=== PATIENT | male | born 1940 | race Caucasian/White ===

== ENCOUNTER 2021-01-04 07:57 | Outpatient (CLI) | payer MEDICARE, SELFPAY ==
[2021-01-04 08:36] LABS: Alanine Aminotransferase 17 U/L (4-50); Albumin Level 4.2 g/dL (3.5-5.1); Alkaline Phosphatase 64 U/L (38-126); Anion Gap 8 mmol/L (8-16); Aspartate Amino Transferase 24 U/L (17-59); Bilirubin,Total 0.7 mg/dL (0.2-1.3); Blood Urea Nitrogen 14 mg/dL (9-20); Calcium 9.5 mg/dL (8.4-10.2); Carbon Dioxide 26 mmol/L (22-30); Chloride 104 mmol/L (98-107); Cholesterol 208 mg/dL (0-200); Estimated Glomerular Filt Rate > 60; Glucose 96 mg/dL (75-110); HDL Direct 71 mg/dL; Potassium 4.1 mmol/L (3.4-5.0); Sodium 138 mmol/L (137-145); Triglycerides 70 mg/dL (<150)
[2021-01-04 08:48] LABS: LDL Cholesterol Direct 106 mg/dL
== END 2021-01-04 07:58 | disposition home or self-care (01) ==
PROVIDERS: PCP Internal Medicine; Visit Provider Internal Medicine
DX: Z13.6 Encounter for screening for cardiovascular disorders (principal); E78.5 Hyperlipidemia, unspecified; Z79.899 Other long term (current) drug therapy
CPT/HCPCS: 36415; 80053; 80061

== ENCOUNTER 2021-09-01 08:54 | Outpatient (CLI) | payer MEDICARE, SELFPAY ==
[2021-09-01 09:57] LABS: Alanine Aminotransferase 21 U/L (4-50); Alkaline Phosphatase 64 U/L (38-126); Anion Gap 7 mmol/L (8-16); Aspartate Amino Transferase 25 U/L (17-59); Bilirubin,Total 0.6 mg/dL (0.2-1.3); Blood Urea Nitrogen 11 mg/dL (9-20); Calcium 9.1 mg/dL (8.4-10.2); Carbon Dioxide 26 mmol/L (22-30); Chloride 103 mmol/L (98-107); Cholesterol 183 mg/dL (0-200); Estimated Glomerular Filt Rate > 60; Glucose 115 mg/dL (65-110); HDL Direct 56 mg/dL; Potassium 3.8 mmol/L (3.4-5.0); Sodium 136 mmol/L (137-145); Triglycerides 92 mg/dL (<150)
[2021-09-01 10:09] LABS: LDL Cholesterol Direct 100 mg/dL
== END 2021-09-01 08:55 | disposition home or self-care (01) ==
PROVIDERS: PCP Internal Medicine; Visit Provider Nurse Practitioner
DX: E78.5 Hyperlipidemia, unspecified (principal)
CPT/HCPCS: 36415; 80053; 80061

== ENCOUNTER 2022-03-06 09:00 | Outpatient (CLI) | payer MEDICARE, SELFPAY ==
[2022-03-06 09:29] LABS: Alanine Aminotransferase 16 U/L (6-50); Albumin Level 4.2 g/dL (3.5-5.1); Alkaline Phosphatase 65 U/L (38-126); Anion Gap 10 mmol/L (8-16); Aspartate Amino Transferase 21 U/L (17-59); Bilirubin,Total 0.8 mg/dL (0.2-1.3); Blood Urea Nitrogen 14 mg/dL (9-20); Calcium 9.1 mg/dL (8.4-10.2); Carbon Dioxide 24 mmol/L (22-30); Chloride 101 mmol/L (98-107); Cholesterol 189 mg/dL (0-200); Estimated Glomerular Filt Rate > 60; Glucose 102 mg/dL (65-110); HDL Direct 64 mg/dL; Potassium 4.3 mmol/L (3.4-5.0); Sodium 135 mmol/L (137-145); Triglycerides 57 mg/dL (<150)
[2022-03-06 09:40] LABS: LDL Cholesterol Direct 97 mg/dL
== END 2022-03-06 09:01 | disposition home or self-care (01) ==
PROVIDERS: PCP Internal Medicine; Visit Provider Internal Medicine
DX: E78.2 Mixed hyperlipidemia (principal); Z79.899 Other long term (current) drug therapy
CPT/HCPCS: 36415; 80053; 80061

== ENCOUNTER 2022-05-06 13:16 | Outpatient (CLI) | payer MEDICARE, SELFPAY ==
--- NOTE | 2022-05-06 13:24 | ECHO_ITS ---
Patient Info Name: Alfonzo Lott Age: 81 years : 1940 Gender: Male Ht: 69 in Wt: 170 lbs BSA: 1.95 m2 HR: 69 bpm BP: 110 / 75 mmHg Heart Rhythm: Sinus Rhythm Technical Quality: Fair Exam Date: 05/06/2022 1:45 PM Exam Location: [facility] Pulmonary Patient Status: Outpatient Admit Date: 05/06/2022 Staff Ordering Physician: Marc Farr DO Sample Hand: Mariela Fisher RDCS Attending Provider: Marc Farr DO Referring Physician: Yordan QUIROS; Exam Type: CA echo doppler color flow Study Info Indications R55 - Syncope and collapse Complete two-dimensional, color flow and Doppler transthoracic echocardiogram is performed. Strain analysis performed. Summary 1. Complete two-dimensional, color flow and Doppler transthoracic echocardiogram is performed. 2. Left ventricular chamber dimension is normal. 3. Left ventricular systolic function is normal, estimated at 60-65%. 4. The left ventricular diastolic function is grade I diastolic dysfunction. 5. E/e' 5 is not elevated. 6. Global longitudinal strain is abnormal at -14.9%. 7. There is mild aortic valve sclerosis. 8. No pulmonary hypertension, estimated pulmonary arterial systolic pressure is 23 mmHg. Left Ventricle E/e' 5 is not elevated. Global longitudinal strain is abnormal at -14.9%. Left ventricular chamber dimension is normal. Left ventricular systolic function is normal, estimated at 60-65%. The left ventricular diastolic function is grade I diastolic dysfunction. Right Ventricle Right ventricular chamber dimension is normal. Right ventricular systolic function is normal. Left Atria Left atrial chamber dimension is normal. Right Atria Right atrial chamber dimension is normal. Aortic Valve The aortic valve is trileaflet. There is mild aortic valve sclerosis. There is no aortic valve stenosis. There is no aortic valve regurgitation. Pulmonic Valve There is no pulmonic regurgitation. Mitral Valve There is no mitral valve stenosis. There is no mitral valve regurgitation. Tricuspid Valve There is no tricuspid valve regurgitation. No pulmonary hypertension, estimated pulmonary arterial systolic pressure is 23 mmHg. Pericardium/Pleural There is no pericardial effusion. Inferior Vena Cava Normal inferior vena cava with >50% collapse upon inspiration consistent with normal right atrial pressure, 5 mmHg. Aorta The aortic root size at the sinus of Valsalva is normal. Left Ventricular Outflow Tract Name Value Normal LVOT 2D LVOT Diameter 2.1 cm LVOT Doppler LVOT Peak Gradient 2 mmHg LVOT Mean Gradient 1 mmHg LVOT VTI 15 cm LVOT VTI/AV VTI Ratio 0.8 LVOT Stroke Volume 52 ml LVOT CO 3.1 l/min LVOT CI 1.6 l/min/m2 Pulmonic Valve Name Value Normal
== END 2022-05-06 13:17 | disposition home or self-care (01) ==
LOC: ANHCARD 13:18
PROVIDERS: PCP Internal Medicine; Visit Provider Internal Medicine Cardiovascular Disease
DX: R55 Syncope and collapse (principal); I35.8 Other nonrheumatic aortic valve disorders; R93.1 Abnormal findings on diagnostic imaging of heart and coronary circulation
CPT/HCPCS: 93306

== ENCOUNTER 2022-12-28 07:07 | Outpatient (CLI) | payer MEDICARE, SELFPAY ==
[2022-12-28 08:14] LABS: Alanine Aminotransferase 20 U/L (6-50); Albumin Level 4.2 g/dL (3.5-5.1); Alkaline Phosphatase 76 U/L (38-126); Anion Gap 6 mmol/L (8-16); Aspartate Amino Transferase 22 U/L (17-59); Bilirubin,Total 0.9 mg/dL (0.2-1.3); Blood Urea Nitrogen 15 mg/dL (9-20); Carbon Dioxide 28 mmol/L (22-30); Chloride 104 mmol/L (98-107); Cholesterol 212 mg/dL (0-200); Estimated Glomerular Filt Rate > 60; Glucose 99 mg/dL (65-110); HDL Direct 53 mg/dL; Potassium 4.3 mmol/L (3.4-5.0); Sodium 138 mmol/L (137-145); Triglycerides 102 mg/dL (<150)
[2022-12-28 08:26] LABS: LDL Cholesterol Direct 136 mg/dL
== END 2022-12-28 07:08 | disposition home or self-care (01) ==
LOC: ANHLAB 07:11
PROVIDERS: PCP Family Medicine; Referring Provider Internal Medicine Cardiovascular Disease; Visit Provider Nurse Practitioner
DX: E78.2 Mixed hyperlipidemia (principal)
CPT/HCPCS: 36415; 80053; 80061

== ENCOUNTER 2023-11-22 07:39 | Outpatient (CLI) | payer MEDICARE, SELFPAY ==
[2023-11-22 08:33] LABS: Basophils Absolute Auto 0.1 K/mm3 (0.0-0.1); Basophils Percent Auto 1.2 % (0.2-1.2); Eosinophils Absolute Auto 0.4 K/mm3 (0-0.3); Eosinophils Percent Auto 6.8 % (0-4.4); Hematocrit 38.2 % (42.0-52.0); Hemoglobin 12.5 g/dL (14.0-18.0); Immature Granulocyte Absolute 0.02 K/mm3 (0.00-0.031); Immature Granulocyte Percent A 0.3 % (0-0.5); Lymphocytes Absolute Auto 1.91 K/mm3 (0.9-3.2); Lymphocytes Percent Auto 32.6 % (18.3-44.2); Mean Corpuscular HGB Conc 32.7 g/dl (32-36); Mean Corpuscular Hemoglobin 33.3 pg (26-34); Mean Corpuscular Volume 101.9 fl (80-100); Mean Platelet Volume 8.9 fl (7.4-10.4); Monocytes Absolute Auto 0.5 K/mm3 (0.1-0.6); Monocytes Percent Auto 8.4 % (2.6-8.5); Neutrophils Percent Auto 50.7 % (45.5-73.1); Platelet Count Result 232 k/mm3 (150-375); Red Blood Count 3.75 M/mm3 (4.6-6.20); Red Cell Distribution Width 13.7 % (11.5-14.5); White Blood Count 5.9 K/mm3 (4.5-10.0)
[2023-11-22 08:43] LABS: Alanine Aminotransferase 41 U/L (6-50); Alkaline Phosphatase 68 U/L (38-126); Anion Gap 5 mmol/L (4-12); Aspartate Amino Transferase 36 U/L (17-59); Blood Urea Nitrogen 10 mg/dL (9-20); Calcium 8.8 mg/dL (8.4-10.2); Carbon Dioxide 27 mmol/L (22-30); Chloride 103 mmol/L (98-107); Cholesterol 191 mg/dL (0-200); Estimated Glomerular Filt Rate > 60; Glucose 104 mg/dL (65-110); HDL Direct 57 mg/dL; Potassium 3.7 mmol/L (3.4-5.0); Sodium 135 mmol/L (137-145); Triglycerides 127 mg/dL (<150)
[2023-11-22 08:54] LABS: LDL Cholesterol Direct 125 mg/dL
== END 2023-11-22 07:40 | disposition home or self-care (01) ==
PROVIDERS: PCP Nurse Practitioner; Visit Provider Nurse Practitioner Family
DX: G31.84 Mild cognitive impairment of uncertain or unknown etiology (principal); E78.2 Mixed hyperlipidemia; M79.673 Pain in unspecified foot; R01.1 Cardiac murmur, unspecified; Z79.899 Other long term (current) drug therapy; Z86.73 Personal history of transient ischemic attack (TIA), and cerebral infarction without residual deficits; Z13.6 Encounter for screening for cardiovascular disorders
CPT/HCPCS: 36415; 80053; 80061; 85025

== ENCOUNTER 2023-12-31 14:22 | Outpatient (CLI) | payer MEDICARE, SELFPAY ==
[2023-12-31 16:14] LABS: Iron 168 ug/dL (49-181)
[2023-12-31 16:24] LABS: Percent Iron Saturation 62 % (20-50)
[2023-12-31 17:31] LABS: Folic Acid 5.1 ng/mL (2.76->20)
[2024-01-03 17:33] LABS: Cobalt,Random Urine 1.1 mcg/L
[2024-01-03 18:54] LABS: Vitamin B6 3.9 ng/mL (2.1-21.7)
[2024-01-04 13:02] LABS: Creatinine,Random Urine 145 mg/dL (20-320)
== END 2023-12-31 14:23 | disposition home or self-care (01) ==
PROVIDERS: PCP Nurse Practitioner; Visit Provider Nurse Practitioner
DX: E03.9 Hypothyroidism, unspecified (principal); G31.84 Mild cognitive impairment of uncertain or unknown etiology; D64.9 Anemia, unspecified; Z86.73 Personal history of transient ischemic attack (TIA), and cerebral infarction without residual deficits
CPT/HCPCS: 36415; 82607; 82746; 83540; 83550; 84207; 84443

== ENCOUNTER 2024-01-05 13:40 | Outpatient (CLI) | payer MEDICARE, SELFPAY ==
--- NOTE | ~2024-01-05 | MR_ITS ---
MRI of the brain Clinical History: TIA Technique: Axial and sagittal T1-weighted images were acquired. These were followed by axial T2-weigh ousmane, diffusion weighted, gradient, and FLAIR images. Findings: There is no acute infarct, intracranial hemorrhage, or mass lesion. Chronic infarcts are no ousmane in the right occipital lobe and left parietal lobe. There is moderate to severe chronic microvasc ular ischemic change in the periventricular white matter bilaterally. There is chronic basis or magne tic versus possibly arachnoid cyst posteriorly, stable from prior brain CT dated 08/11/2017. Ventricles and subarachnoid spaces otherwise are mildly diffusely dilated. Orbits are unremarkable. T here is right maxillary sinus disease. Remaining paranasal sinuses and mastoid air cells are clear. M ajor intracranial flow voids are grossly intact. Sagittal midline structures are intact. There is probable moderate degenerative spondylosis of the ce rvical spine. IMPRESSION: No acute infarct, intracranial hemorrhage, or solid mass lesion. 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 Mild to moderate generalized atrophy. Stable negative cisterna magna versus arachnoid cyst posteriorly. Reviewed, dictated and finalized at location M. IMPRESSION: No acute infarct, intracranial hemorrhage, or solid mass lesion. 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 Mild to moderate generalized atrophy. Stable negative cisterna magna versus arachnoid cyst posteriorly.
== END 2024-01-05 13:41 ==
LOC: MICIMG 13:41
PROVIDERS: PCP Student in an Organized Health Care Education/Training Program; Visit Provider Nurse Practitioner
DX: G31.9 Degenerative disease of nervous system, unspecified (principal); Z86.73 Personal history of transient ischemic attack (TIA), and cerebral infarction without residual deficits
CPT/HCPCS: 70551

== ENCOUNTER 2024-01-06 19:22 | Emergency (ER) | payer MEDICARE, SELFPAY ==
[2024-01-06 19:23] VITALS: BP 98/53; PULSE 73; RESP 22; TEMP 36.4; O2SAT 98
--- NOTE | 2024-01-06 19:24 | ECG_ITS ---
Test Date: 2024-01-06 19:34:09 Measurements Intervals [place] Rate: 73 P: -30 [place]: 184 QRS: -27 QRSD: 102 T: -30 QT: 389 QTc: 429 Interpretive Statements SINUS RHYTHM INCOMPLETE RIGHT BUNDLE BRANCH BLOCK [90+ ms QRS DURATION, TERMINAL R IN V1/V2, 40+ ms S IN I/aVL/V4/V5/V6] CONSIDER PREVIOUS INFERIOR INFARCT NONSPECIFIC ST & T-WAVE ABNORMALITY ABNORMAL ELECTROCARDIOGRAM No previous ECG available for comparison Electronically Signed On 01-07-2024 07:08:19 CDT by Nixon Vieyra M.D.
[2024-01-06 19:29] VITALS: PULSE 73
[2024-01-06 19:51] LABS: Basophils Absolute Auto 0.1 K/mm3 (0.0-0.1); Basophils Percent Auto 1.1 % (0.2-1.2); Eosinophils Absolute Auto 0.1 K/mm3 (0-0.3); Eosinophils Percent Auto 1.8 % (0-4.4); Hematocrit 36.9 % (42.0-52.0); Hemoglobin 12.3 g/dL (14.0-18.0); Immature Granulocyte Absolute 0.03 K/mm3 (0.00-0.031); Immature Granulocyte Percent A 0.5 % (0-0.5); Lymphocytes Absolute Auto 1.11 K/mm3 (0.9-3.2); Lymphocytes Percent Auto 19.4 % (18.3-44.2); Mean Corpuscular HGB Conc 33.3 g/dl (32-36); Mean Corpuscular Hemoglobin 33.8 pg (26-34); Mean Corpuscular Volume 101.4 fl (80-100); Mean Platelet Volume 8.7 fl (7.4-10.4); Monocytes Absolute Auto 0.5 K/mm3 (0.1-0.6); Monocytes Percent Auto 9.3 % (2.6-8.5); Neutrophils Absolute Auto 3.9 K/mm3 (1.3-6.7); Neutrophils Percent Auto 67.9 % (45.5-73.1); Platelet Count Result 185 k/mm3 (150-375); Red Blood Count 3.64 M/mm3 (4.6-6.20); Red Cell Distribution Width 13.1 % (11.5-14.5); White Blood Count 5.7 K/mm3 (4.5-10.0)
[2024-01-06 20:04] LABS: Alanine Aminotransferase 36 U/L (6-50); Albumin Level 3.8 g/dL (3.5-5.1); Alkaline Phosphatase 75 U/L (38-126); Anion Gap 8 mmol/L (4-12); Aspartate Amino Transferase 36 U/L (17-59); Bilirubin,Total 0.4 mg/dL (0.2-1.3); Blood Urea Nitrogen 11 mg/dL (9-20); Calcium 9.3 mg/dL (8.4-10.2); Carbon Dioxide 25 mmol/L (22-30); Chloride 104 mmol/L (98-107); Estimated CRCL calculation 47 ml/min; Estimated Glomerular Filt Rate > 60; Glucose 129 mg/dL (65-110); Potassium 3.5 mmol/L (3.4-5.0); Sodium 137 mmol/L (137-145)
--- NOTE | 2024-01-06 20:59 | ED.DIZZY ---
HPI - Dizziness General Chief Complaint: Syncope Stated Complaint: SYNCOPE Time Seen by Provider: 01/06/24 20:30 History of Present Illness HPI Narrative: Patient is an 83-year-old male who presents to the emergency department this evening after a syncopal episode that occurred at home. Patient states that he got up from a seated position too fast and passed out, family members caught the patient as he was going down. Patient did not fall or hit his head. This happened again when EMS arrived. Patient admits that he has not had anything to drink or eat all day. He did admit to feeling lightheaded denies any room spinning or dizziness sensation, is currently denying any chest pain or shortness of breath, any nausea, vomiting or abdominal pain, patient is completely asymptomatic and states that he feels much better after the IV fluids that EMS administered. Patient's initial blood pressure for EMS was 90s/60s mmHg. Related Data Home Medications Medication Instructions Recorded Confirmed aspirin 81 mg tablet,delayed 81 mg PO DAILY 01/05/20 12/31/23 release Allergies Allergy/AdvReac Type Severity Reaction Status Date / Time Penicillins Allergy Mild Rash Verified 01/06/24 19:34 memantine AdvReac Severe Hallucinati Verified 01/06/24 19:34 ng Review of Systems Review of Systems: All systems are reviewed and are negative unless stated otherwise in the HPI. [facility] Past Medical History Medical History Anemia Family history of heart disease Heart murmur History of stroke Mild cognitive impairment Mixed hyperlipidemia On manager long term care drug therapy Poor fine motor skills Primary osteoarthritis of both hips Primary osteoarthritis of both knees Primary osteoarthritis of left knee Spondylosis of lumbar spine Surgical History Surgical History History of knee surgery Family History Family History Father Family history of lung cancer Patient's father is Mother Pneumonia Sibling Heart disease FH: heart attack Social History Social History Smoking status: Never smoker Second hand tobacco smoke exposure: No Smoking end date: 07/26/1963 Alcohol intake: current Alcohol use details: social Substance use: never Lack of Transportation: No Lack of Food: Never True Current Housing: I Have Housing Concerned About Future Housing: No Difficulty Paying Gas/Electric Bills: No Difficulty Paying for Meds: No Currently Unemployed: No Education: High School Diploma/GED Difficulty w/ Childcare or Family Care: No Exam Narrative: General: Alert, awake, afebrile, in no acute distress. HEENT: PERRL, no rhinorrhea, no post nasal drip, oropharynx clear. Cardiovascular: Regular rate and rhythm, no murmurs, rubs or gallops, no peripheral edema. Respiratory: Clear to auscultation bilaterally, no tachypnea, no wheezing, no rhonchi, no rubs, no respiratory distress. Abdomen: Soft, nontender, nondistended, no rebound, no guarding, no peritoneal signs. Musculoskeletal: No joint swelling or deformity, normal muscle tone. Skin: No rashes or petechia, no signs of infection. Neurological: Alert and oriented to person, place, and time. Follows all commands. No focal deficits, 5/5 motor strength in the bilateral upper and lower extremity, sensation intact in the bilateral lower and upper extremity, cranial nerves 2-12 grossly intact, speech is clear and fluent. Course Vital Signs Vital signs: Vital Signs Temperature 97.5 F L 01/06/24 19:23 Pulse Rate 73 01/06/24 19:23 Respiratory Rate 22 H 01/06/24 19:23 Blood Pressure 98/53 L 01/06/24 19:23 Pulse Oximetry 98 01/06/24 19:23 Oxygen Delivery Room Air 01/06/24 19:23 Temperature 97.5 F L 0
--- NOTE | 2024-01-06 21:12 | PC.NURSE ---
Pt came in with a bag of fluids from EMS and received half of it prior to getting to the hospital. Dr. Naranjo states to have pt finish rest of fluids and if he does not feel dizzy or weak he is okay to be discharged home.
== END 2024-01-06 21:41 | disposition home or self-care (01) ==
PROVIDERS: Student in an Organized Health Care Education/Training Program; Emergency Provider Emergency Medicine; PCP Nurse Practitioner
DX: R55 Syncope and collapse (principal); E78.2 Mixed hyperlipidemia
CPT/HCPCS: 36415; 80053; 85025; 93005; 99284

== ENCOUNTER 2024-02-03 10:30 | Outpatient (RCR) | payer MEDICARE, SELFPAY ==
--- NOTE | 2024-01-21 15:03 | PTOPEVAL1 ---
Assessment and note entered by Elaina Mixon, PT Evaluation Information Assessment Status Evaluation Diagnosis weakness Onset 01/06/2024 Subjective Information Pt's reports that patient has Alzheimer's Disease and she is providing most of the information/history. She reports that patient had a passing out episode 2 weeks ago due to dehydration, she noticed he was getting progressively weak and unsteady on his feet. She denies him having any falls but states he has had some near falls . States they have 6 LASHONDA with [facility] . Patient's reports that she is concerned about him falling, appears like he might be dizzy when he is standing for a prolonged period of time . Patient denies dizziness and pain during eval. Assessment PT Clinical Summary Pt presents to therapy with his who answered most of the questions and provided information in addition to what the patient verbalized. Pt's mentioned her fear that her will fall, denies any falls in the last 6 months but has had several near-fall incidents. Pt has PMH of stroke , anemia, h/o syncopal episode due to dehydration, arrythmia, OA to B hips and knees, spondylosis of lumbar spine, Alzheimer's Disease (per pt's , not in the chart). Demos generalized weakness with noted LLE slightly weaker than R, postural and balance deficits, reduced reaction time and impaired balance strategies, gait impairments. He will greatly benefit from skilled PT to improve overall strength, balance and coordination and gait mechanics to improve functional mobility and reduce risk for falls. Plan of Care Interventions Gait Training,Hot Pack/Cold Pack,Manual Therapy, Neuro Re-education,Patient/Caregiver Education, Therapeutic Activities,Therapeutic Exercise PT Services Indicated Yes Treatment Frequency and 2x/week x 10 visits Duration These treatments will address the objective and functional deficits as defined above. The patient will be advanced safely and appropriately in order for the patient to progress towards his/her prior level of function. Additional exercises will be introduced and as well as a comprehensive home exercise program upon discharge, if needed, ?to ensure carryover of functional gains achieved in the clinic. This treatment plan has been reviewed and agreement upon by the patient.
--- NOTE | 2024-02-07 15:17 | PCPTNOTE ---
Pt's cancelled all remaining appts today due recieving home health care.
--- NOTE | 2024-02-18 12:02 | PTOPDC ---
Assessment and note entered by Elaina Mixon, PT Discharge Information Assessment Status Discharge - Pt Not Presen Diagnosis weakness Onset 01/06/2024 Subjective Information pt not present this date. Assessment PT Clinical Summary Pt was seen in therapy for 5 sessions, transitioning to Home Health Therapy at this time. Goals not addressed today. Plan of Care PT Services Indicated No
== END 2024-02-18 12:43 | disposition home or self-care (01) ==
LOC: ANHPT 10:30
PROVIDERS: PCP Nurse Practitioner; Visit Provider Nurse Practitioner
DX: M62.81 Muscle weakness (generalized) (principal)
CPT/HCPCS: 97110; 97112; 97116; 97161; 97530

== ENCOUNTER 2024-02-03 11:25 | Inpatient (IN) | payer MEDICARE, SELFPAY ==
[2024-02-03] VITALS (14 sets, daily range): BP systolic 87–135; BP diastolic 54–75; PULSE 57–116; RESP 13–20; TEMP 36.1–36.5; O2SAT 94–99
--- NOTE | ~2024-02-03 | XR_ITS ---
EXAMINATION: XR chest 1V portable 02/03/2024 12:43 INDICATION: Syncope PROCEDURE: AP portable chest COMPARISON: 12/16/2008 FINDINGS: The lungs are clear. The cardiomediastinal silhouette is within normal limits. There are no pleural effusions. There is no pneumothorax suspected. IMPRESSION: 1: NO ACUTE CARDIOPULMONARY DISEASE. Reviewed, dictated and finalized at location B.
--- NOTE | 2024-02-03 12:03 | ECG_ITS ---
Test Date: 2024-02-03 12:45:07 Measurements Intervals [place] Rate: 58 P: 25 OR: 186 QRS: -5 QRSD: 101 T: 15 QT: 413 QTc: 406 Interpretive Statements SINUS BRADYCARDIA INCOMPLETE RIGHT BUNDLE BRANCH BLOCK LOW QRS VOLTAGE IN PRECORDIAL LEADS BORDERLINE ECG Compared to ECG 01/06/2024 19:34:09 HEART RATE HAS DECREASED Low QRS voltage now present Electronically Signed On 02-03-2024 13:17:48 CDT by Marc Farr D.O.
[2024-02-03 12:17] LABS: Basophils Absolute Auto 0.1 K/mm3 (0.0-0.1); Basophils Percent Auto 0.8 % (0.2-1.2); Eosinophils Absolute Auto 0.2 K/mm3 (0-0.3); Eosinophils Percent Auto 2.5 % (0-4.4); Hematocrit 36.7 % (42.0-52.0); Hemoglobin 12.4 g/dL (14.0-18.0); Immature Granulocyte Absolute 0.03 K/mm3 (0.00-0.031); Immature Granulocyte Percent A 0.5 % (0-0.5); Lymphocytes Absolute Auto 1.33 K/mm3 (0.9-3.2); Lymphocytes Percent Auto 20.6 % (18.3-44.2); Mean Corpuscular HGB Conc 33.8 g/dl (32-36); Mean Corpuscular Volume 100.5 fl (80-100); Mean Platelet Volume 8.8 fl (7.4-10.4); Monocytes Absolute Auto 0.6 K/mm3 (0.1-0.6); Monocytes Percent Auto 8.5 % (2.6-8.5); Neutrophils Absolute Auto 4.3 K/mm3 (1.3-6.7); Neutrophils Percent Auto 67.1 % (45.5-73.1); Platelet Count Result 215 k/mm3 (150-375); Red Blood Count 3.65 M/mm3 (4.6-6.20); Red Cell Distribution Width 13.6 % (11.5-14.5); White Blood Count 6.5 K/mm3 (4.5-10.0)
--- NOTE | 2024-02-03 12:22 | ED.GENADULT ---
HPI - General Adult General Chief complaint: Recheck/Abnormal Lab/Rx Stated complaint: low bp Time Seen by Provider: 02/03/24 11:56 History of Present Illness HPI narrative: 83-year-old male presenting to the emergency department for evaluation after having a near syncopal episode today. Patient was evaluated emergency department few weeks ago due to an episode of syncope and he thought it was mainly due to dehydration. Patient was at physical therapy today and while straining did become lightheaded but did improve with being laid down. Patient has dementia at baseline is at his current baseline per family. Patient denies any current pain or complaints. Patient denies any associated chest pain shortness breath nausea vomiting diarrhea Related Data Home Medications Medication Instructions Recorded Confirmed aspirin 81 mg tablet,delayed 81 mg PO HS 01/05/20 02/03/24 release pravastatin 40 mg tablet 40 mg PO HS 02/03/24 02/03/24 tamsulosin 0.4 mg capsule 0.4 mg PO HS 02/03/24 02/03/24 Allergies Allergy/AdvReac Type Severity Reaction Status Date / Time Penicillins Allergy Mild Rash Verified 02/03/24 15:19 memantine AdvReac Severe Hallucinati Verified 02/03/24 15:19 ng Review of Systems Review of Systems: All systems reviewed & are unremarkable except as noted in HPI and below PMFSH Past Medical History Medical History Anemia Family history of heart disease Heart murmur History of stroke Mild cognitive impairment Mixed hyperlipidemia On superintendent terminal drug therapy Poor fine motor skills Primary osteoarthritis of both hips Primary osteoarthritis of both knees Primary osteoarthritis of left knee Spondylosis of lumbar spine Surgical History Surgical History History of knee surgery Family History Family History Father Family history of lung cancer Patient's father is Mother Pneumonia Sibling Heart disease FH: heart attack Social History Social History Smoking packs per day: 1 Smoking cigarettes per day: 20.0 Years smoked: 5 Smoking pack-years: 5.00 Smoking status: Former smoker Second hand tobacco smoke exposure: No Alcohol intake: former Alcohol use details: social Substance use: never Do You Feel Safe in your Home?: Yes Lack of Transportation: No Lack of Food: Never True Current Housing: I Have Housing Concerned About Future Housing: No Difficulty Paying Gas/Electric Bills: No Difficulty Paying for Meds: No Currently Unemployed: No Education: High School Diploma/GED Difficulty w/ Childcare or Family Care: No Spiritual care concerns: No Exam Narrative: APPEARANCE: Well appearing, no pain, no distress, well-nourished. HEAD: normocephalic, atraumatic. EYES: PERRLA/EOMI, conjunctivae clear. NOSE: Normal no drainage EARS:TMS clear with good light reflex. THROAT: Pharynx clear, no exudate. NECK: Supple. No adenopathy, no masses. RESPIRATORY: Airway patent, respirations nonlabored. Clear to auscultation bilaterally, no rales, rhonchi, wheezing. CARDIOVASCULAR: Regular rate and rhythm without murmurs rubs or gallops. ABDOMINAL: Soft, nontender, nondistended, normal bowel sounds MUSCULOSKELETAL: Moves all extremities. Strength/ROM intact, No edema, No calf tenderness. NEURO: Alert. Cranial nerves II through XII intact. grossly intact SKIN: Warm, dry. Normal Color Course Vital Signs Vital signs: Vital Signs Pulse Rate 76 02/03/24 11:31 Respiratory Rate 20 02/03/24 11:31 Blood Pressure 92/62 L 02/03/24 11:31 Pulse Oximetry 94 02/03/24 11:31 Oxygen Delivery Room Air 02/03/24 11:31 Temperature 97.7 F 02/03/24 15:24 Pulse Rate 67 02/03/24 16:04 Respiratory Rate 16 02/02
[2024-02-03 12:28] LABS: Alanine Aminotransferase 61 U/L (6-50); Alkaline Phosphatase 66 U/L (38-126); Anion Gap 12 mmol/L (4-12); Aspartate Amino Transferase 61 U/L (17-59); Bilirubin,Total 0.7 mg/dL (0.2-1.3); Blood Urea Nitrogen 13 mg/dL (9-20); Calcium 9.2 mg/dL (8.4-10.2); Carbon Dioxide 22 mmol/L (22-30); Chloride 100 mmol/L (98-107); Estimated CRCL calculation 53 ml/min; Estimated Glomerular Filt Rate > 60; Glucose 138 mg/dL (65-110); Potassium 4.4 mmol/L (3.4-5.0); Sodium 134 mmol/L (137-145)
[2024-02-03 13:34] LABS: Influenza A QL RT-PCR Negative (Negative); Influenza B QL RT-PCR Negative (Negative); RSV RNA, RT-PCR Negative (Negative); SARS-CoV-2 RNA PCR Negative (Negative)
[2024-02-03] MEDS: SODIUM CHLORIDE 0.9% IV 1,000 ML 125 ML IV CONT ×2 (13:51→22:00)
--- NOTE | 2024-02-03 13:58 | PC.NURSE ---
Lunch tray ordered from cafeteria at this time.
--- NOTE | 2024-02-03 14:40 | ADMGEN ---
This patient, Alfonzo Lott, was admitted to Medical Room 343-01. Patient/family oriented to hospital policies and general routines including ID bracelet, bed and alarms, visiting hours, pain management, procedures, bathroom and other care routines, personal items, smoking policy, room service/diet, and visiting hours. Information on how to activate the Rapid Response Team has been discussed. Patient/Family are encouraged to report perceived risks to care and to ask questions if they do not understand what they are told or what they should do.
--- NOTE | 2024-02-03 19:37 | PM.IMHP ---
H&P: HPI History of Present Illness Date/Time: 02/03/24 19:37 Chief Complaint: near syncope Narrative: This is an 83-year-old male with past medical history significant for dementia patient was brought to the emergency room due to near syncopal episode most of the history has been obtained from daughter and were at bedside as patient has dementia when asked [facility] he answers depends on the day he knows that his closer to [place] and he can not which was just recently celebrated between (26 of January) patient had a similar episode recently. Preliminary workup was significant for blood pressure of 80/50, a urinalysis was normal, patient tested negative for influenza type A influenza type B COVID and RSV. Patient was found to be orthostatic. Place in observation for further evaluation management and treatment. EXAMINATION: XR chest 1V portable 02/03/2024 12:43 INDICATION: Syncope PROCEDURE: AP portable chest COMPARISON: 12/16/2008 FINDINGS: The lungs are clear. The cardiomediastinal silhouette is within normal limits. There are no pleural effusions. There is no pneumothorax suspected. IMPRESSION: 1: NO ACUTE CARDIOPULMONARY DISEASE. Review of Systems Review of Systems: ROS unobtainable: Yes unobtainable due to medical condition (dementia) [facility] Past Medical History Medical History (Updated 02/04/24 @ 01:06 by Yousuf Hicks MD) Anemia Family history of heart disease Heart murmur History of stroke Mild cognitive impairment Mixed hyperlipidemia On exterminator helper drug therapy Poor fine motor skills Primary osteoarthritis of both hips Primary osteoarthritis of both knees Primary osteoarthritis of left knee Spondylosis of lumbar spine Surgical History Surgical History History of knee surgery Family History Family History Father Family history of lung cancer Patient's father is Mother Pneumonia Sibling Heart disease FH: heart attack Social History Social History Smoking packs per day: 1 Smoking cigarettes per day: 20.0 Years smoked: 5 Smoking pack-years: 5.00 Smoking status: Former smoker Second hand tobacco smoke exposure: No Alcohol intake: former Alcohol use details: social Substance use: never Do You Feel Safe in your Home?: Yes Lack of Transportation: No Lack of Food: Never True Current Housing: I Have Housing Concerned About Future Housing: No Difficulty Paying Gas/Electric Bills: No Difficulty Paying for Meds: No Currently Unemployed: No Education: High School Diploma/GED Difficulty w/ Childcare or Family Care: No Spiritual care concerns: No Meds Home Medications and Allergies Home Medications Medication Instructions Recorded Confirmed Type aspirin 81 mg tablet,delayed 81 mg PO HS 01/05/20 02/03/24 History release donepezil 10 mg tablet 10 mg PO QHS #90 tabs 03/10/22 02/03/24 Rx pravastatin 40 mg tablet 40 mg PO HS 02/03/24 02/03/24 History tamsulosin 0.4 mg capsule 0.4 mg PO HS 02/03/24 02/03/24 History Allergies Allergy/AdvReac Type Severity Reaction Status Date / Time Penicillins Allergy Mild Rash Verified 02/03/24 15:19 memantine AdvReac Severe Hallucinati Verified 02/03/24 15:19 ng Vital Signs Vital Signs - 24 hr 02/03/24 11:31 02/03/24 11:34 02/03/24 11:35 Temperature Pulse Rate 76 70 88 Respiratory Rate 20 Blood Pressure 92/62 L 100/63 103/65 Pulse Oximetry 94 Oxygen Delivery Room Air 02/03/24 11:37 02/03/24 11:46 02/03/24 12:56 Temperature Pulse Rate 116 H 82 57 L Respiratory Rate 19 14 Blood Pressure 87/54 L 100/67 103/61 Pulse Oximetry 98 96 Oxygen Delivery 02/03/24 13:02 02/03/24 13:17 02/03/24 13:47 Temperature Puls
[2024-02-03 21:50] LABS: Appearance Urine Clear (Clear); Bilirubin Urine Negative (Negative); Blood Urine Negative (Negative); Color Urine Yellow (Yellow); Glucose Urine UA Negative (Negative); Ketones Urine Negative (Negative); Leukocyte Esterase Ur Negative LEU/UL (Negative); Nitrate Urine Negative (Negative); Protein Urine Negative (Negative); Specific Grav Ur 1.004 (1.001-1.035); Urobilinogen Urine 0.2 mg/dL (<2.0); pH Urine 6.5 (5.0-9.0)
[2024-02-03 21:55] LABS: Add Urine Microscopic? NO
[2024-02-03] MEDS: PRAVASTATIN SODIUM 20 MG TABLET 40 MG PO (21:59)
[2024-02-03] MEDS: DONEPEZIL HCL 10 MG TABLET PO (22:00)
[2024-02-03] MEDS: ASPIRIN 81 MG ENTERIC TABLET PO (22:00)
[2024-02-03] MEDS: TAMSULOSIN HCL 0.4 MG CAPSULE PO (22:00)
--- NOTE | 2024-02-03 23:23 | PC.NURSE ---
Family voiced concerns regarding amount and frequency of patient urination. A UA was performed along with post-void. UA is pending with post void amount totalling 163. Will await UA results. no further issues at this time.
[2024-02-03] MEDS: OLANZapine DISPERTAB 5 MG PO (23:59)
[2024-02-04] VITALS (11 sets, daily range): BP systolic 81–146; BP diastolic 44–74; PULSE 58–115; RESP 16–20; TEMP 36.6–36.9; O2SAT 94–98
[2024-02-04] MEDS: SODIUM CHLORIDE 0.9% IV 1,000 ML 125 ML IV CONT (08:58)
--- NOTE | 2024-02-04 12:23 | PM.CNCAR ---
Assessment and Plan Assessment and plan (1) Orthostatic hypotension: Code(s): I95.1 - Orthostatic hypotension Status: Acute Assessment and Plan: Orthostatic vital signs are positive Maintain adequate fluid intake Wear abdominal binder DAMARIS hose move slowly when transitioning from sitting to standing position Spend as much time sitting in the chair during the day as possible Midodrine can be added if he remains significantly/symptomatically orthostatic despite the above interventions Cardiology will sign off - this is a patient of Dr. Farr, we are covering for him while he is on vacation but patient should follow up with Dr. Farr as scheduled. (2) Syncope: Code(s): R55 - Syncope and collapse Status: Acute Assessment and Plan: He did not have syncope, did not lose consciousness. He had pre syncope most likely related to orthostatic hypotension. No arrhythmias seen on telemetry. History of Present Illness History of Present Illness Consult date/time: 02/04/24 12:23 Requesting physician: Will Daniels MD Reason For Visit: orthostatic hypotension Narrative: Alfonzo Steward is an 83 year old male with no cardiac history. He does have a history of syncope related to dehydration and orthostasis. Cardiology is being asked to see him because of syncope. Patient is not able to give any reliable history due to his dementia. His provides the history that he was at physical therapy yesterday and had a pre-syncopal event. He did not lose consciousness. She could tell he was about to pass out by the look on his face - he had a similar episode about 5 weeks ago which was attributed to orthostatic hypotension. His orthostatic blood pressures have been positive here. He denies any chest pain, palpitations, shortness of breath. He has no complaints at the time of my evaluation. Review of Systems Review of Systems: ROS unobtainable: Yes unobtainable due to mental status PMFSH Past Medical History Medical History Anemia Family history of heart disease Heart murmur History of stroke Mild cognitive impairment Mixed hyperlipidemia On exterminator helper termite drug therapy Poor fine motor skills Primary osteoarthritis of both hips Primary osteoarthritis of both knees Primary osteoarthritis of left knee Spondylosis of lumbar spine Surgical History Surgical History History of knee surgery Family History Family History Father Family history of lung cancer Patient's father is Mother Pneumonia Sibling Heart disease FH: heart attack Social History Social History Smoking packs per day: 1 Smoking cigarettes per day: 20.0 Years smoked: 5 Smoking pack-years: 5.00 Smoking status: Former smoker Second hand tobacco smoke exposure: No Alcohol intake: former Alcohol use details: social Substance use: never Do You Feel Safe in your Home?: Yes Lack of Transportation: No Lack of Food: Never True Current Housing: I Have Housing Concerned About Future Housing: No Difficulty Paying Gas/Electric Bills: No Difficulty Paying for Meds: No Currently Unemployed: No Education: High School Diploma/GED Difficulty w/ Childcare or Family Care: No Spiritual care concerns: No Meds Home Medications and Allergies Home Medications Medication Instructions Recorded Confirmed Type aspirin 81 mg tablet,delayed 81 mg PO HS 01/05/20 02/03/24 History release donepezil 10 mg tablet 10 mg PO QHS #90 tabs 03/10/22 02/03/24 Rx pravastatin 40 mg tablet 40 mg PO HS 02/03/24 02/03/24 History tamsulosin 0.4 mg capsule 0.4 mg PO HS 02/03/24 02/03/24 History Allergies Allergy/AdvReac Type Severity Reaction Status Date / Time Penicillins All
--- NOTE | 2024-02-04 14:01 | WPDPN ---
Progress Note: A&P Assessment and Plan (1) Orthostatic hypotension: Code(s): I95.1 - Orthostatic hypotension Status: Acute (2) Mixed hyperlipidemia: Code(s): E78.2 - Mixed hyperlipidemia Status: Acute (3) Primary osteoarthritis of both knees: Code(s): M17.0 - Bilateral primary osteoarthritis of knee Status: Acute (4) Anemia: Qualifiers: Anemia type: unspecified type Qualified Code(s): D64.9 - Anemia, unspecified Code(s): D64.9 - Anemia, unspecified Status: Acute Plan Interval history 02/04/24: patient with demential and history syncope and orthostatic hypotension seen by x ray physician outpatient suspect dehydration, patient is being hydrated, may benefit with addition of midodrine, will consult his x ray physician for further recommendation, will CPM and monitor, patient daughter is present gave updates. patient will work with PT and further recommendation to follow. Subjective Date/time seen: 02/04/24 14:01 Interval history: near syncope [id number]: This is an 83-year-old male with past medical history significant for dementia patient was brought to the emergency room due to near syncopal episode most of the history has been obtained from daughter and were at bedside as patient has dementia when asked [facility] he answers depends on the day he knows that his closer to [place] and he can not which was just recently celebrated between (26 of January) patient had a similar episode recently. Preliminary workup was significant for blood pressure of 80/50, a urinalysis was normal, patient tested negative for influenza type A influenza type B COVID and RSV. Patient was found to be orthostatic. Place in observation for further evaluation management and treatment. Interval history 02/04/24: patient with demential and history syncope and orthostatic hypotension seen by x ray physician outpatient suspect dehydration, patient is being hydrated, may benefit with addition of midodrine, will consult his x ray physician for further recommendation, will CPM and monitor, patient daughter is present gave updates. patient will work with PT and further recommendation to follow. Review of Systems Review of Systems: ROS unobtainable: Yes unobtainable due to mental status Exam Narrative: Patient is comfortable, NAD HEENT: eyes are clear and none icteric LUNGS:CTA HEART: RR S1S2 ABD: BS+, Soft and nontender Lower extremities: no edema SKIN: nonjaundiced Neuro: grossly intact. Objective Data Vital Signs Vital Signs: Vital Signs - 24 hr 02/03/24 15:24 02/03/24 14:40 02/03/24 16:04 Temperature 36.5 C Pulse Rate 72 67 Respiratory Rate 16 Blood Pressure 107/75 Pulse Oximetry 97 Oxygen Delivery Room Air 02/03/24 20:56 02/03/24 20:00 02/03/24 20:00 Temperature 36.1 C L Pulse Rate 62 65 Respiratory Rate 20 Blood Pressure 135/64 Pulse Oximetry 99 Oxygen Delivery Room Air 02/03/24 21:39 02/04/24 00:00 02/04/24 03:16 Temperature Pulse Rate 67 62 Respiratory Rate Blood Pressure Pulse Oximetry 99 Oxygen Delivery Room Air 02/04/24 06:00 02/04/24 08:19 02/04/24 12:41 Temperature 36.6 C Pulse Rate 66 64 Respiratory Rate 20 Blood Pressure 142/74 H 108/61 Pulse Oximetry 97 Oxygen Delivery Room Air 02/04/24 12:42 02/04/24 12:42 02/04/24 08:04 Temperature Pulse Rate 75 88 83 Respiratory Rate Blood Pressure 97/57 L 81/44 L Pulse Oximetry Oxygen Delivery 02/04/24 12:05 Temperature Pulse Rate 58 L Respiratory Rate Blood Pressure Pulse Oximetry Oxygen Delivery Intake/Output Intake/Output: Intake & Output 02/01/24 02/02/24 02/03/24 02/04/24 23:59 23:59 23:59 23:59 Intake Total 1000 1480 Output Total 100 400 Balance 900 1080 Meds/Results Medications: Active Medications Generic Name Dose Route Star
[2024-02-04] MEDS: ASPIRIN 81 MG ENTERIC TABLET PO (20:37)
[2024-02-04] MEDS: TAMSULOSIN HCL 0.4 MG CAPSULE PO (20:38)
[2024-02-04] MEDS: PRAVASTATIN SODIUM 20 MG TABLET 40 MG PO (20:38)
[2024-02-04] MEDS: DONEPEZIL HCL 10 MG TABLET PO (20:38)
[2024-02-04] MEDS: OLANZapine DISPERTAB 5 MG PO (20:39)
--- NOTE | 2024-02-04 20:51 | PC.NURSE ---
Spouse upset that this nurse did not force patient to take medication last night for dementia with behaviors. Medication was requested after initial med pass, at which point patient was suspicious of additional med pass. It was offered to allow family to attempt giving the patient the med while I was bedside. Family refused. This evening, patient shows same agitation. Spouse again stating that she's not accusing this nurse of anything, but remains upset that I did not insist or force patient to take meds. This nurse provided alternate methods to get patient to take his medications and steps to take if unsuccessful. Several cautionary comments were made by spouse about calling higher management regarding the situation. At that time, Charge Nurse Evelia was brought in to speak with family members. Education and options parallel to what was offered previously were met with understanding. With encouragement and demonstration for patient from spouse, this nurse proceeded to offer all medications to patient as before. Med pass was successful.
[2024-02-04] MEDS: SODIUM CHLORIDE 0.9% IV 1,000 ML 500 ML IV CONT (23:16)
[2024-02-04 23:30] LABS: D Dimer 0.56 ug/mL (<0.48)
[2024-02-05] VITALS: PULSE 65
[2024-02-05 04:00] VITALS: PULSE 55
--- NOTE | 2024-02-05 06:27 | PC.NURSE ---
Spouse refused vital signs at this time. Patient resting comfortably.
[2024-02-05 08:00] VITALS: PULSE 53; O2SAT 96
[2024-02-05 12:00] VITALS: BP 95/55; PULSE 64; PULSE 71
[2024-02-05 12:01] VITALS: BP 108/60; PULSE 75
--- NOTE | 2024-02-05 14:33 | PM.DS ---
DS: Admitting Diagnosis Discharge Date 02/05/2024 Admitting Diagnosis Orthostatic hypotension DS: Discharge Diagnosis Discharge Diagnosis (1) Orthostatic hypotension: Code(s): I95.1 - Orthostatic hypotension Status: Acute Assessment and Plan: Resolved with hydration Suspect contribution of basal dilatation from tamsulosin and blunted heart rate response from donepezil (2) Mixed hyperlipidemia: Code(s): E78.2 - Mixed hyperlipidemia Status: Acute Assessment and Plan: Continue pravastatin (3) Anemia: Qualifiers: Anemia type: unspecified type Qualified Code(s): D64.9 - Anemia, unspecified Code(s): D64.9 - Anemia, unspecified Status: Acute Assessment and Plan: Chronic and stable DS: Summary Hospital Course Reason for hospitalization: Dizziness Hospital Course: Admitted to [facility] due to dizziness. Was found to be 0 orthostatic. Recently started tamsulosin about 1 month ago for urinary hesitancy. He was treated with IV fluids abdominal binder and compression stockings. He did well with these. His blood pressure was 95/55 seated and 1 await over 60 standing on the day of discharge. His tamsulosin was discontinued on the day of discharge and he finasteride was begun. Discussed rationale with patient's spouse and daughter. He was to continue follow-up with primary care to monitor blood pressures and prostatic symptoms. Discussed with and daughter that Proscar may take 3-6 months to have a beneficial effect. CBC showed his chronic anemia. CMP was remarkable for mild hyperglycemia to be followed up as outpatient. Chest x-ray showed no acute cardiopulmonary abnormality. EKG with sinus bradycardia and incomplete right bundle branch block. Time Spent with Patient Time attestation: Total time spent providing and/or coordinating discharge services: Exam Narrative: Pleasant, cooperative, comfortable, NAD HEENT: sclerae nonicteric, oral mucosa moist LUNGS:CTA HEART: RR S1S2, no murmur ABD: BS+, Soft and nontender Lower extremities: no edema SKIN: nonjaundiced Neuro: grossly intact. Psych Alert. Oriented to person. DS: Data Data Completed and Pending Labs on day of discharge: Labs from last 24 hours 02/04/24 23:11 D-Dimer 0.56 H Discharge Plan Discharge Consulting providers: Nixon Vieyra Discharging Clinician: Aldo Price Patient Disposition: Home, Self-Care Activity: no driving and as tolerated Diet: regular Discharge Instructions: Per Care Coordination, patient to discharge with [facility] ([phone]) for PT/OT and shelter services. Agency will call to arrange the initial visit. Stand Alone Forms: General Discharge Information Follow-up/Referrals: Brent Strickland DO [Physician] - (orthostatic hypotension, dementia, bph, med side effects) Discharge Medications: New finasteride [Proscar] 5 mg Tablet 5 mg PO QAM Qty: 90 0RF Continued donepezil 10 mg tablet 10 mg PO QHS Qty: 90 1RF aspirin 81 mg tablet,delayed release (DR/EC) 81 mg PO HS pravastatin 40 mg tablet 40 mg PO HS Discontinued tamsulosin 0.4 mg capsule 0.4 mg PO HS Date of admission: 02/04/24 13:27 Primary Care Provider: Eliceo Ch Admitting Provider: Will Daniels Attending physician on admission: Will Daniels Condition: Improved Attestation Supervising Provider Attestation Advanced directive status reviewed and as stated in H/P.
== END 2024-02-05 16:00 | disposition home health service (06) | DRG 312 ==
LOC: ANHED 12:19 → ANH3MED 14:01
PROVIDERS: Internal Medicine; Student in an Organized Health Care Education/Training Program; Admitting Provider Family Medicine; Emergency Provider Emergency Medicine; PCP Nurse Practitioner; Visit Provider Internal Medicine
DX: I95.1 Orthostatic hypotension (principal); E86.0 Dehydration; E78.2 Mixed hyperlipidemia; D64.9 Anemia, unspecified; M17.0 Bilateral primary osteoarthritis of knee; M16.0 Bilateral primary osteoarthritis of hip; M47.816 Spondylosis without myelopathy or radiculopathy, lumbar region; Z20.822 Contact with and (suspected) exposure to COVID-19; Z86.73 Personal history of transient ischemic attack (TIA), and cerebral infarction without residual deficits; Z87.891 Personal history of nicotine dependence
CPT/HCPCS: 36415; 71045; 80053; 81003; 85025; 85380; 87637; 93005; 96360; 96361; 97110; 99285; A9270; G0378; J7030